=== PATIENT | female | born 1985 | race Caucasian/White ===

== ENCOUNTER 2021-02-10 09:03 | Outpatient (CLI) | payer BC, OTHER, SELFPAY ==
--- NOTE | ~2021-02-10 | MM_ITS ---
EXAMINATION: MM screening serina BI w alpesh HISTORY: Screening TECHNIQUE: Craniocaudal and mediolateral oblique 3-D tomosynthesis images were obtained and synthetic 2-D images were generated. CAD analysis was submitted and interpreted. COMPARISON: No prior mammogram is available for comparison at this institution. BREAST PARENCHYMAL COMPOSITION: There are scattered areas of fibroglandular density. FINDINGS: There is no evidence of suspicious mass, calcification, or architectural distortion to sugg est malignancy in either breast. There has been no suspicious interval change. IMPRESSION: 1. No mammographic evidence of malignancy. 2. Recommend routine screening mammography in one year. BI-RADS Category 1: Negative Reviewed, dictated and finalized at location A. ICIAN OPHTHALMOLOGIST
== END 2021-02-10 09:04 | disposition home or self-care (01) ==
LOC: CHSIMG 09:05
PROVIDERS: PCP Nurse Practitioner; Visit Provider Obstetrics & Gynecology
DX: Z12.31 Encounter for screening mammogram for malignant neoplasm of breast (principal); Z80.3 Family history of malignant neoplasm of breast
CPT/HCPCS: 77063; 77067

== ENCOUNTER 2022-06-24 07:50 | Outpatient (CLI) | payer BC, OTHER, SELFPAY ==
--- NOTE | ~2022-06-24 | MM_ITS ---
EXAMINATION: MM screening serina BI w alpseh HISTORY: Screening mammogram TECHNIQUE: Craniocaudal and mediolateral oblique 3-D tomosynthesis images were obtained and synthetic 2-D images were generated. CAD analysis was submitted and interpreted. COMPARISON: 02/10/2021 BREAST PARENCHYMAL COMPOSITION: There are scattered areas of fibroglandular density. FINDINGS: No suspicious mass, calcification, or architectural distortion are identified in either ronda ast to suggest malignancy. There has been no suspicious interval change. IMPRESSION: 1. No mammographic evidence of malignancy. 2. Recommend routine screening mammography in one year. BI-RADS Category 1: Negative Reviewed, dictated and finalized at location A.
== END 2022-06-24 07:51 | disposition home or self-care (01) ==
LOC: CHSIMG 07:53
PROVIDERS: PCP Family Medicine; Visit Provider Family Medicine
DX: Z12.31 Encounter for screening mammogram for malignant neoplasm of breast (principal)
CPT/HCPCS: 77063; 77067

== ENCOUNTER 2023-06-26 08:07 | Outpatient (CLI) | payer OTHER, SELFPAY ==
--- NOTE | ~2023-06-26 | MM_ITS ---
EXAMINATION: MM screening serina BI w alpesh HISTORY: Screening mammogram TECHNIQUE: Craniocaudal and mediolateral oblique 3-D tomosynthesis images were obtained and synthetic 2-D images were generated. CAD analysis was submitted and interpreted. COMPARISON: 06/24/2022, 02/10/2021 bilateral screening mammogram examinations BREAST PARENCHYMAL COMPOSITION: There are scattered areas of fibroglandular density. FINDINGS: There is no evidence of suspicious mass, calcification, or architectural distortion to sugg est malignancy in either breast. There has been no suspicious interval change. IMPRESSION: 1. No mammographic evidence of malignancy. 2. Recommend routine screening mammography in one year. BI-RADS Category 1: Negative Reviewed, dictated and finalized at location A.
== END 2023-06-26 08:08 | disposition home or self-care (01) ==
LOC: CHSIMG 08:10
PROVIDERS: PCP Internal Medicine; Visit Provider Internal Medicine
DX: Z12.31 Encounter for screening mammogram for malignant neoplasm of breast (principal)
CPT/HCPCS: 77063; 77067

== ENCOUNTER 2024-08-01 08:11 | Outpatient (CLI) | payer OTHER, SELFPAY ==
--- NOTE | ~2024-08-01 | MM_ITS ---
EXAMINATION: MM screening serina BI w alpesh HISTORY: Screening TECHNIQUE: Craniocaudal and mediolateral oblique 3-D tomosynthesis images were obtained and synthetic 2-D images were generated. CAD analysis was submitted and interpreted. COMPARISON: Comparison to multiple prior studies sequentially, with oldest reviewed study dated 01/14. BREAST PARENCHYMAL COMPOSITION: Not dense: There are scattered areas of fibroglandular density. FINDINGS: There is no evidence of suspicious mass, calcification, or architectural distortion to sugg est malignancy in either breast. There has been no suspicious interval change. IMPRESSION: 1. No mammographic evidence of malignancy. 2. Recommend routine screening mammography in one year. BI-RADS Category 1: Negative Reviewed, dictated and finalized at location A.
--- OUTSIDE RECORDS SUMMARY | 2024-08-01 08:22 | XMS_ITS | Encounter Summary ---
Author Organization [facility] Address [address] [place] [address] Care Team Providers Care Light Adjuster Name Role Phone Cassidy Jones MD Primary Care Provider [phone] Reason for Visit * Reason Onset Date Comments MEDICATION REFILL 07/19/2024 Encounter Details Date Type Department Care Team (Late Contact Info) Description 07/19/2024 Refill [facility] - Endocrinology [address] [place] [address] eBll Jorge M, DO [address] [phone] MEDICATION REFILL Social History Tobacco Use Types Packs/Day Years Used Date Smoking Tobacco: Never Smokeless Tobacco: Never Alcohol Use Standard Drinks/Week Comments Not Currently 0 (1 standard drink = 0.6 oz pur e alcohol) 1 drink occasionallly Comments No Sex and Gender Information Value Date Recorded Sex Assigned at Not on file Legal Sex Female 6:27 AM RUBBER MOLD MAKER Gender Identity Not on file Sexual Orientation Not on file 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 on file Not on file Not on file documented as of this encounter Plan of Treatment Upcoming Encounters Date Type Department Care Team (Late Contact Info) Description 09/10/2024 3:30 PM CDT Office Visit [facility] - Plastic Surgery [address] [facility] [address] [place] [address] Kaley Perez MD [address] [place] [address] 01/27/2025 8:20 AM RUBBER MOLD MAKER Office Visit [facility] Endocr[facility]ology [address] [place] [phone] Yesenia Erazo APRN-REMOTE CODERS [address] [facility] [place] [phone] documented as of this encounter Visit Diagnoses Diagnosis Type 2 diabetes mellitus with other specified complication, unspecified whether parts counterman insulin use (HCC) documented in this encounter Care Teams Light Adjuster Relationship Specialty Start Date End Date Cassidy Jones MD [address] [address] PCP - General Internal Medicine 01/20/23 documented as of this encounter
--- OUTSIDE RECORDS SUMMARY | 2024-08-01 08:22 | XMS_ITS | Encounter Summary ---
Author Organization [facility] Address [address] [facility] [place] [address] Care Team Providers Care Tape Maker Name Role Phone Cassidy Jones MD Primary Care Provider [phone] Reason for Visit * Reason Onset Date Comments MEDICATION REFILL 05/19/2023 Encounter Details Date Type Department Care Team (Late Contact Info) Description 05/19/2023 Refill [facility] End[facility]ology [facility] [place] [address] Bell Jorge M, DO [address] [phone] MEDICATION REFILL Social History Tobacco Use Types Packs/Day Years Used Date Smoking Tobacco: Never Smokeless Tobacco: Never Alcohol Use Standard Drinks/Week Comments Not Currently 0 (1 standard drink = 0.6 oz pur e alcohol) 1 drink occasionallly Comments No Sex and Gender Information Value Date Recorded Sex Assigned at Not on file Legal Sex Female 6:27 AM LEATHER BELT SHAPER Gender Identity Not on file Sexual Orientation Not on file 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 Not on file Not on file documented as of this encounter Plan of Treatment Upcoming Encounters Date Type Department Care Team (Late Contact Info) Description 09/10/2024 3:30 PM CDT Office Visit [facility] Surgery [address] [facility] [address] [place] [address] Kaley Perez MD [address] [place] [address] 01/27/2025 8:20 AM LEATHER BELT SHAPER Office Visit [facility] - Endocrinology [address] [place] [phone] Yesenia Erazo APRN-SLIDE MAKER [address] [facility] [place] [phone] documented as of this encounter Visit Diagnoses Diagnosis Type 2 diabetes mellitus without complication, without long-term current use of insulin (HCC) documented in this encounter Care Teams Tape Maker Relationship Specialty Start Date End Date Cassidy Jones MD [address] [facility] [address] [place] [address] PCP - General Internal Medicine 01/20/23 documented as of this encounter
--- OUTSIDE RECORDS SUMMARY | 2024-08-01 08:22 | XMS_ITS | Clinical Summary ---
Author Organization [facility] Address [address] [place] [address] Care Team Providers Care Supervisor Sign Shop Name Role Phone Cassidy Jones MD Primary Care Provider [phone] Source Comments [facility],non-owned Affiliates and Associated Physician Practices is amultiple site organization consisting of ambulatory clinics and hospital sitesin [place], [place], [place] and [place]. This disclosure is being madepursuant to the Care Everywhere program and may not contain all information available regarding this patient. Last updated 17.[facility] Allergies Active Allergy Reactions Criticality Noted Date Comments Avocado Anaphylaxis High 07/25/2024 Chicken-Derived Products Swelling High 06/21/2022 Dulaglutide Other 09/27/2022 Had a lot of GI side effects Metformin GI Discomfort 04/14/2023 Medications * Be aware that medications may not be up to date on this document. Alwaysverify current medications with the patient. Vitamin D, Cholecalcifero l, 25 MCG (1000 UT) Take 1 (one) tablet by mouth once daily 023 Active famotidine (Pepcid) 20 MG tablet Take 1 (one) tablet by mouth 2 times daily 023 Active Multiple Vitamins-[place] als (Multivitamin & Mineral) LIQD Take by mouth once daily Active omeprazole (PriLOSEC) 40 MG capsule Take 1 (one) capsule by mouth once daily 023 Active cyanocobalamin (Vitamin B-12) 1000 MCG tablet Take 1 (one) tablet by mouth once daily 023 Active EPINEPHrine (Epipen) 0.3 MG/0.3ML auto-injector pen Inject 0.3 mL into muscle as needed 023 Active rosuvastatin (Crestor) 40 MG tablet Take 1 (one) tablet by mouth once daily Active venlafaxine XR 24hr (Effexor XR) 37.5 MG capsule Take 1 (one) capsule by mouth at bedtime 024 Active celecoxib (CeleBREX) 200 MG capsule Take 1 (one) capsule by mouth 2 times daily 024 Active levocetirizine (Xyzal) 5 MG tablet Take 1 (one) tablet by mouth once daily Active tirzepatide (Mounjaro) 15 MG/0.5ML injectionIndic ations:Type 2 diabetes mellitus with other specified complication, unspecified whether termination clerk insulin use (HCC) Inject 15 (fifteen) mg subcutaneously every 7 days (once a week) 2 mL 025 Active tirzepatide (Mounjaro) 15 MG/0.5ML injectionIndic ations:Type 2 diabetes mellitus with other specified complication, unspecified whether retirement insulin use (HCC) Inject 15 (fifteen) mg subcutaneously every 7 days (once a week) 2 mL 3 025 2024 Discontinued(R eorder) tirzepatide (Mounjaro) 15 MG/0.5ML injectionIndic ations:Type 2 diabetes mellitus with other specified complication, unspecified whether retirement insulin use (HCC) Inject 15 (fifteen) mg subcutaneously every 7 days (once a week) 2 mL 3 025 2024 Discontinued tirzepatide (Mounjaro) 15 MG/0.5ML injectionIndic ations:Type 2 diabetes mellitus with other specified complication, unspecified whether retirement insulin use (HCC) Inject 15 (fifteen) mg subcutaneously every 7 days (once a week) 2 mL 11 025 2024 Discontinued(R eorder) Active Problems Problem Noted Date Diagnosed Date LEA (obstructive sleep apnea) 05/01/2023 Overview (05/01/2023): HOME SLEEP APNEA TEST INTERPRETATION (01/17/2023) DIAGNOSTIC STUDY During this diagnostic study, the patient was monitored for 353.5 minutes. The patient's overall respiratory event index (PANFILO) was within normal limits at 3.9 per hour. The supine PANFILO was 20.3 per hour while the non-supine PANFILO was 3 per hour. The minimum oxygen saturation was within normal limits at 89%. The time spent with oxygen saturation less than 89% was 0 min. IMPRESSION: Although the overall PANFILO was within normal limits (<5/hr), the patient had an elevated supine PANFILO of 20/hr based on 15 minutes of supine sleep. Anxiety 09/27/2022 05/01/2023 History of dnvke-[id number]-neejwivtcud deficiency 202205/01/2023 Irritable bowel syndrome without diarrhea 202205/01/2023 MTHFR gene mutation 09/27/2022 05/01/2023 PMDD (premenstrual dysphoric disorder) 05/01/2023 LUQ pain 07/01/2022 05/01/2023 Overview (05/01/2023): Added automatically from request for surgery [id number] Type 2 diabetes mellitus 04/11/2022 PCOS (polycystic ovarian syndrome) 04/11/2022 Morbid obesity 04/11/2022 Full dentures 04/11/2022 Resolved Problems Problem Noted Date Diagnosed Date Resolved Date Diarrhea 07/01/2022 05/01/2023 05/29/2023 Overview (05/01/2023): Added automatically from request for surgery [id number] Encounters Date Type Department Care Team Description 07/25/2024 1:00 PM CDT Office Visit [facility] - Endocrinology [address] [place] [address] Bell Jorge DO Type 2 diabetes mellitus with other specified complication, unspecified whether termination clerk insulin use (HCC) (Primary Dx) 07/25/2024 Travel 07/19/2024 Refill [facility] [address] [place] [address] Bell Jorge, DO MEDICATION REFILL 06/06/2024 Telephone [facility] Endocrinology [address] [place] [phone] Bell Jorge Refill Request 06/04/2024 11:30 AM CDT Office Visit [facility] - Plastic Surgery [address] [facility] [address] [place] [address] Kaley Perez MD Macromastia (Primary Dx); Type 2 diabetes mellitus without complication, unspecified whether termination clerk insulin use (HCC); PMDD (premenstrual dysphoric disorder); MTHFR gene mutation; LEA (obstructive sleep apnea); Intertrigo 06/04/2024 Travel 05/01/2024 Travel from Last 3 Months Family History Medical History Relation Name Comments Sleep Disorder - Other Father insom miriam, RLS Sleep Disorder - Other Mother insom miriam Cancer - Breast Paternal Aunt Cancer - Breast Paternal Grandmother Relation Name Status Comments Father Alive Mother Paternal Aunt Alive Paternal Grandmother Social History Tobacco Use Types Packs/Day Years Used Date Smoking Tobacco: Never Smokeless Tobacco: Never Tobacco Cessation:Counseling Given: Not Answered Alcohol Use Standard Drinks/Week Comments Not Currently 0 (1 standard drink = 0.6 oz pur e alcohol) 1 drink occasionallly Comments No Sex and Gender Information Value Date Recorded Sex Assigned at Not on file Legal Sex Female 6:27 AM GUITAR REPAIR TECHNICIAN Gender Identity Not on file Sexual Orientation Not on file 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 Not on file Not on file Last Filed Vital Signs Vital Sign Reading Time Taken Comments Blood Pressure 116/82 07/25/2024 12:49 PM CDT Pulse 76 07/25/2024 12:49 PM CDT Temperature 36.4 C (97.6 F) 07/25/2024 12:49 PM CDT Respiratory Rate 16 06/04/2024 11:1 4 AM CDT Oxygen Saturation 100% 06/04/2024 11: 14 AM CDT Inhaled Oxygen Concentration - - Weight 108.3 kg (238 lb 12.8 oz) 2024 12:49 PM CDT Height 172.7 cm (5' 8) 07/25/2024 12:4 9 PM CDT Body Mass Index 36.31 07/25/2024 12:49 PM CDT Plan of Treatment Upcoming Encounters Date Type Department Care Team (Late st Contact Info) Description 09/10/2024 3:30 PM CDT Office Visit [facility] - Plastic Surgery [address] [place] [address] Kaley Perez MD [address] [place] [address] 01/27/2025 8:20 AM GUITAR REPAIR TECHNICIAN Office Visit [facility] - Endocrinology [address] [place] [phone] Yesenia Erazo APRN-SEWAGE DISPOSAL ENGINEER [address] [facility] [place] [phone] Health Maintenance Due Date Last Done Comments HIV SCREENING 1998 DTAP/TDAP/TD VACCINES (1 - Tdap) 2002 HEPATITIS B VACCINE (1 of 3 - 19+ 3-dose series) 2002 PNEUMOCOCCAL VACCINE (1 of 2 - PCV) 2002 PAP SMEAR 02/03/2004 DIABETES RETINOPATHY SCREENING 05/09/2022 DIABETES-FOOT EXAM WITH MONOFILAMENT 05/09/2022 COVID-19 VACCINE (1 - season) 2023 DEPRESSION SCREENING 02/14/2024 DIABETES - URINE PROTEIN SCREENING 02/14/2024 INFLUENZA VACCINE (Season Ended) 2024 DIABETES-HGB A1C 01/24/2025 07/25/2024, , 02/01/2024, Additional history exists DIABETES-SERUM CREATININE 04/25/20252024, 04/25/2024, 04/25/2024, Additional history exists MAMMOGRAM 06/25/2025 06/26/2023, 06/13, 06/26/2023, Additional history exists ZOSTER VACCINE (1 of 2) 2033 HEPATITIS C SCREENING Completed 04/21/2023 HIB VACCINE Aged Out No longer eligi ble based on patient's age to complete this topic HPV VACCINE Aged Out No longer eligi ble based on patient's age to complete this topic MENINGOCOCCAL (Group B) VACCINE SHARED DECISION-MAKING Aged Out No longer eligible based on patient's age to complete this topic MENINGOCOCCAL GROUPS A/C/Y/W VACCINE Aged Out No longer eligible based on patient's age to complete this topic Procedures Procedure Name Priority Date/Time Associated Diagnosis Comments HEMOGLOBIN A1C - POINT OF CARE (AMB) [facility] Routine 07/25/2024 12:56 PM CDT Type 2 diabetes mellitus with other specified complication, unspecified whether termination clerk insulin use (HCC) from Last 3 Months Results * HEMOGLOBIN A1C - POINT OF CARE (AMB) [facility] (07/25/2024 12:56 PM CDT) Hemoglobin A1c POCT 5.3 % BLOOD SPECIMEN / Unknown 07/25/2024 12:56 PM CDT Bell Jorge DO LAB - POINT OF CARE ORDERABLES F inal Result from Last 3 Months Insurance [employer] [facility] OPTIONS PPO Care Teams Supervisor Sign Shop Relationship Specialty Start Date End Date Cassidy Jones MD [address] [address] PCP - General Internal Medicine 01/20/23
== END 2024-08-01 08:12 | disposition home or self-care (01) ==
LOC: CHSIMG 08:17
PROVIDERS: PCP Internal Medicine; Visit Provider Internal Medicine
DX: Z12.31 Encounter for screening mammogram for malignant neoplasm of breast (principal)
CPT/HCPCS: 77063; 77067